=== PATIENT | male | born 1990 | race African-American/Black ===

== ENCOUNTER 2022-05-27 12:12 | Emergency (ER) | payer SELFPAY ==
[2022-05-27] MEDS ORDERED: KEP500T PO (21:24)
== END 2022-05-27 12:46 | disposition left against medical advice (07) ==
LOC: ER 12:12
DX: R56.9 Unspecified convulsions (principal); Z53.21 Procedure and treatment not carried out due to patient leaving prior to being seen by health care provider

== ENCOUNTER 2022-05-27 19:13 | Emergency (ER) | payer MEDICAID ==
[~2022-05-27] VITALS: Ht 185.4 cm; Wt 101.0 kg
[2022-05-27 19:45] VITALS: BP 154/98
--- NOTE | 2022-05-27 20:44 | NUR ---
rpd at bedside
[2022-05-27] MEDS ORDERED: KEP500T PO (21:24)
[2022-05-27] MEDS ORDERED: levetiracetam 250mg tablet PO ONE (21:35)
== END 2022-05-27 21:54 | disposition home or self-care (01) ==
LOC: ER 19:14
DX: R56.9 Unspecified convulsions (principal); F17.200 Nicotine dependence, unspecified, uncomplicated; F15.90 Other stimulant use, unspecified, uncomplicated; Z72.89 Other problems related to lifestyle; Z59.00 Homelessness unspecified; Z86.69 Personal history of other diseases of the nervous system and sense organs; Z79.899 Other long term (current) drug therapy
CPT/HCPCS: 99283

== ENCOUNTER 2022-06-04 22:31 | Inpatient (IN) | payer MEDICAID ==
[~2022-06-04] VITALS: Ht 185.4 cm; Wt 101.0 kg
[~2022-06-04 22:31] MED LIST: KEP500T PO
[2022-06-04] MEDS ORDERED: LORazepam 1 MG tablet PO ONE (22:45)
[2022-06-04] MEDS ORDERED: ziprasidone IM 20mg inj **IM only IM ONE (22:50)
[2022-06-04] MEDS ORDERED: levetiracetam 250mg tablet PO ONE (22:50)
[2022-06-04] MEDS ORDERED: diphenhydrAMINE 25mg capsule PO ONE (22:50)
--- NOTE | 2022-06-04 23:00 | NUR ---
RPD provided name of pt's . Lissy Hernandez [phone]
[2022-06-05 00:19] LABS: BASOPHILS # (AUTO) 0.1 X10'3 (0-0.2); BASOPHILS % (AUTO) 0.6 % (0-1); EOSINOPHILS # (AUTO) 0.2 X10'3 (0-0.9); EOSINOPHILS % (AUTO) 1.6 % (0-6); HEMOGLOBIN 12.5 g/dl (14.0-17.9); LYMPHOCYTES # (AUTO) 1.7 X10'3 (1.1-4.8); LYMPHOCYTES % (AUTO) 13.8 % (21-51); MEAN CORPUSCULAR HEMOGLOBIN 26.7 PG (27.0-31.0); MEAN CORPUSCULAR HGB CONC 33.7 g/dL (33.0-36.5); MEAN CORPUSCULAR VOLUME 79.3 FL (78-98); MONOCYTES % (AUTO) 8.5 % (2-12); NEUTROPHILS # (AUTO) 9.3 X10'3 (1.8-7.7); NEUTROPHILS % (AUTO) 75.5 % (42-75); PLATELET COUNT 273 X10'3 (140-440); RED BLOOD COUNT 4.67 X10'6 (4.70-6.10); RED CELL DISTRIBUTION WIDTH 15.1 % (11.5-14.5); WHITE BLOOD COUNT 12.3 X10'3 (4.5-11.0)
[2022-06-05 00:46] LABS: ALANINE AMINOTRANSFERASE 25 U/L (12-78); ALBUMIN 3.6 G/DL (3.4-5.0); ALBUMIN/GLOBULIN RATIO 1.2 (1.1-1.5); ALKALINE PHOSPHATASE 90 IU/L (46-116); ANION GAP 9 (8-16); ASPARTATE AMINO TRANSFERASE 28 U/L (10-37); BILIRUBIN,TOTAL 0.4 MG/DL (0.1-1.0); BLOOD UREA NITROGEN 12 MG/DL (7-18); BUN/CREATININE RATIO 12.4 (5.4-32.0); CALCIUM 8.5 MG/DL (8.5-10.1); CHLORIDE 104 MMOL/L (99-107); CREATININE 0.97 MG/DL (0.60-1.10); GLUCOSE 94 MG/DL (70-104); POTASSIUM 3.4 MMOL/L (3.5-5.1); SODIUM 140 MMOL/L (135-145); TOTAL CARBON DIOXIDE 27.1 MMOL/L (24-32); TOTAL PROTEIN 6.7 G/DL (6.4-8.2); eGFR > 90 ML/MIN
[2022-06-05 00:53] LABS: ETHANOL < 0.010 GM/DL (0.0-0.010)
[2022-06-05 02:18] LABS: URINE AMPHETAMINE SCREEN POSITIVE (Neg); URINE BARBITUATE SCREEN NEGATIVE (Neg); URINE BENZODIAZEPINES SCREEN NEGATIVE (Neg); URINE CANNABINOID SCREEN POSITIVE (Neg); URINE COCAINE SCREEN NEGATIVE (Neg); URINE METHADONE SCREEN NEGATIVE (Neg); URINE OPIATE SCREEN POSITIVE (Neg); URINE PHENCYCLIDINE SCREEN NEGATIVE (Neg)
[2022-06-05 02:25] LABS: CLARITY,URINE CLEAR (Clear); COLOR,URINE YELLOW (Yellow); GLUCOSE, URINE NEGATIVE (Neg); KETONES,URINE NEGATIVE (Neg); LEUKOCYTE ESTERASE ,URINE NEGATIVE (Neg); NITRITES, URINE NEGATIVE (Neg); OCCULT BLOOD,URINE NEGATIVE (Neg); PROTEIN,URINE NEGATIVE (Neg); UROBILINOGEN,URINE 0.2 E.U/dL (0.2-1.0)
[2022-06-05 02:35] LABS: UA COLLECTION TYPE CLN CATCH MIDSTREAM
[2022-06-05] MEDS ORDERED: normal saline 1000ml 1,000 ML IV ONE (05:40)
--- NOTE | 2022-06-05 07:00 | NUR ---
Report from LAURA Marie. Per Cynthia patient is a hard stick and okay to give fluid oral per
--- NOTE | 2022-06-05 07:24 | NUR ---
Patient sleeping on right side. No distress observed. Continue to monitor.
[2022-06-05] MEDS ORDERED: KEP500T PO (08:35)
--- NOTE | 2022-06-05 09:05 | NUR ---
Patient continues to sleep. No distress observed.
[2022-06-05] MEDS: levetiracetam 250mg tablet PO SCH ×2 (09:23→19:06)
--- NOTE | 2022-06-05 10:55 | NUR ---
Patient awoke and eating 100% of tray and RN had a carb control extra tray and patient at 100% of second tray. Patient is coming off of meth. Patient has drank some water. Patient falls asleep easily, sometimes in the middle of eating. Continue to monitor.
--- NOTE | 2022-06-05 11:55 | NUR ---
RN started I.V. on left upper arm. Second attempt. Patient tolerated well. Continue to monitor.
[2022-06-05] MEDS ORDERED: potassium Cl 20 mEq SR tablet PO STA (13:51)
--- NOTE | 2022-06-05 14:06 | NUR ---
Patient eating his lunch. No distress observed. Continue to monitor.
--- NOTE | 2022-06-05 15:23 | NUR ---
Patient continues to sleep. No distress observed. Continue to monitor.
[2022-06-05 16:48] LABS: BASOPHILS # (AUTO) 0.1 X10'3 (0-0.2); EOSINOPHILS # (AUTO) 0.3 X10'3 (0-0.9); EOSINOPHILS % (AUTO) 3.1 % (0-6); HEMATOCRIT 40.1 % (42.0-52.0); HEMOGLOBIN 13.6 g/dl (14.0-17.9); LYMPHOCYTES # (AUTO) 2.3 X10'3 (1.1-4.8); LYMPHOCYTES % (AUTO) 22.5 % (21-51); MEAN CORPUSCULAR HGB CONC 33.9 g/dL (33.0-36.5); MEAN CORPUSCULAR VOLUME 79.7 FL (78-98); MEAN PLATELET VOLUME 7.6 FL (7.4-10.4); MONOCYTES # (AUTO) 0.8 X10'3 (0-0.9); NEUTROPHILS # (AUTO) 6.7 X10'3 (1.8-7.7); NEUTROPHILS % (AUTO) 65.4 % (42-75); PLATELET COUNT 284 X10'3 (140-440); RED BLOOD COUNT 5.02 X10'6 (4.70-6.10); RED CELL DISTRIBUTION WIDTH 15.6 % (11.5-14.5); WHITE BLOOD COUNT 10.3 X10'3 (4.5-11.0)
[2022-06-05 16:53] LABS: ALANINE AMINOTRANSFERASE 23 U/L (12-78); ALBUMIN/GLOBULIN RATIO 0.9 (1.1-1.5); ALKALINE PHOSPHATASE 90 IU/L (46-116); ANION GAP 6 (8-16); ASPARTATE AMINO TRANSFERASE 24 U/L (10-37); BILIRUBIN,TOTAL 0.3 MG/DL (0.1-1.0); BLOOD UREA NITROGEN 12 MG/DL (7-18); CALCIUM 8.2 MG/DL (8.5-10.1); CHLORIDE 107 MMOL/L (99-107); CREATININE 0.92 MG/DL (0.60-1.10); GLUCOSE 97 MG/DL (70-104); POTASSIUM 4.4 MMOL/L (3.5-5.1); SODIUM 141 MMOL/L (135-145); TOTAL CARBON DIOXIDE 27.6 MMOL/L (24-32); TOTAL PROTEIN 6.2 G/DL (6.4-8.2); eGFR > 90 ML/MIN
--- NOTE | 2022-06-05 17:03 | NUR ---
Felix RECIO, evaluating patient. Continue to monitor.
[2022-06-05] MEDS ORDERED: OLANZapine 2.5MG tablet PO SCH (18:50)
[2022-06-05] MEDS: olanzapine 10mg tablet PO SCH (19:06)
--- NOTE | 2022-06-05 19:29 | NUR ---
Pt sleeping at start of shift. Awakened easily. Speech somewhat tangential. Pt says he hears voices no details on what they say. He does not want to take his prior medications but agreed to try Zyprexa as ordered. Took Zyprexa ate snacks. Pleasant and cooperative. Back to sleep at this time.
[2022-06-05] MEDS ORDERED: mag hydrox/Alum hydrox/simeth 30ml oral suspension PO PRN (21:10)
[2022-06-05] MEDS ORDERED: loperamide 2mg capsule PO PRN (21:10)
[2022-06-05] MEDS ORDERED: magnesium hydroxide 30ml (MOM) UD suspension PO PRN (21:10)
[2022-06-05] MEDS ORDERED: acetaminophen 325mg tablet PO PRN ×2 (21:10)
[2022-06-05 22:34] VITALS: BP 118/63
--- NOTE | 2022-06-05 23:32 | NUR ---
Admit Note: Pt on 5150 for DTS for having recurring SI and hearing voices and seeing shadows. Pt planned to run into traffic. Pt is a resident of [facility] and recently moved to [place] to participate with [facility], new life recovery program. Pt is currently homeless, is a poor historian. Pt is cooperative with admission process, has SI with a plan to jump in front of a car, +AH, the voices tell him "everything" and he fears for his family. Pt mumbles at times and is difficult to understand. Pt has Hx of schizophrenia, THC use and crystal meth.
[2022-06-06 08:00] VITALS: BP 119/63
[2022-06-06] MEDS: olanzapine 10mg tablet PO SCH ×2 (08:23→20:04)
[2022-06-06] MEDS: levetiracetam 250mg tablet PO SCH ×2 (08:23→20:04)
[2022-06-06 09:12] LABS: CHOL/HDL RATIO 1.8 (0.00-4.99); CHOLESTEROL 98 MG/DL (0-200); HDL CHOLESTEROL 56 MG/DL (35-60); LDL CHOLESTEROL 41 MG/DL (50-100); TRIGLYCERIDES 32 MG/DL (20-135)
[2022-06-06 09:19] LABS: HEMOGLOBIN A1C 5.4 % (4.5-6.2)
--- NOTE | 2022-06-06 17:32 | NUR ---
Nursing Progress Note: Problem: Pt on 5150 for DTS for having recurring SI and hearing voices and seeing shadows. Pt planned to run into traffic. Pt is a resident of [facility] and recently moved to [place] to participate with [facility] new life recovery program. Pt is currently homeless, is a poor historian. Pt is cooperative with admission process, has SI with a plan to jump in front of a car, +AH, the voices tell him "everything" and he fears for his family. Pt mumbles at times and is difficult to understand. Pt has Hx of schizophrenia, patient is positive for THC, and opiates. Interventions : Maintained a safe and supportive environment, ensured contract for safety, provide clear and simple instructions, encouraged participation on the unit, and maintained Q 15 min safety checks. Response: Received patient sleeping in bed at change of shift. Patient attends meals and then goes right back to bed and sleeps, sometimes snoring loudly. Patient took morning medications and went back to sleep. Attempted to awaken patient several times throughout the day for 1:1, but patient would not wake up. MILO Castelan attempted to awaken patient, but was unsuccessful. Requested male RN come and wake patient up, as he may respond to a males voice. Patient did wake up, but initially would not answer questions. Patient finally admitted that he is suicidal, and that today he is not having auditory hallucinations. Patient nodded his head confirming that he is hopeless, and started to cry just a little. Patient requested snack and sandwich was provided in the group room. Patient is guarded, appears depressed and isolates. Plan : Pt. continues to require medication adjustments and a safe and supportive environment.
[2022-06-06 19:48] VITALS: BP 119/56
--- NOTE | 2022-06-06 23:59 | NUR ---
Nursing Progress Note: Gaetano Problem: Pt on 5150 for DTS for having recurring SI and hearing voices and seeing shadows. Pt planned to run into traffic. Pt is a resident of [facility] and recently moved to [place] to participate with [facility], new life recovery program. Pt is currently homeless, is a poor historian. Pt is cooperative with admission process, has SI with a plan to jump in front of a car, +AH, the voices tell him "everything" and he fears for his family. Pt mumbles at times and is difficult to understand. Pt has Hx of schizophrenia, patient is positive for THC, and opiates. Interventions : Maintained a safe and supportive environment, ensured contract for safety, provide clear and simple instructions, encouraged participation on the unit, and maintained Q 15 min safety checks. Response: Received patient sleeping at change of shift. Woke pt up for HS medications. Pt has +AH and states they are top secret. He states they are SOS shit trying to communicate through my brain. Pt up for HS snacks and went back to bed. Patient is guarded, appears depressed and isolates. Plan : Pt. continues to require medication adjustments and a safe and supportive environment.
[2022-06-07 08:00] VITALS: BP 115/72
[2022-06-07] MEDS: levetiracetam 250mg tablet PO SCH ×2 (08:36→19:45)
[2022-06-07] MEDS: olanzapine 10mg tablet PO SCH ×2 (08:37→19:45)
--- NOTE | 2022-06-07 11:49 | NUR ---
Discharge planning, initial info from client --client states he would like to discharge to [facility] --client's [facility] is [facility] --would like transportation to [facility]/does not have transportation --states if he returns to spouse Lissy Hernandez (Gina), , he has housing. --PCP: Fahad Shay, [address] [place] [address] --[facility] mental health contact: [phone] Addendum: 06/07/22 at 1448 by Annelise SEVILLA Client provided verbal permission to contact emergency contact (Awilda, spouse) and [facility].
--- NOTE | 2022-06-07 15:00 | NUR ---
Met with patient in regards to substance use and to see if patient wanted resources for treatment options. Patient stated that he was just in the [facility] program and that he was asked to leave the program. Patient said he would like to go back home first and work on his mental health before deciding on a drug treatment facility again. I gave patient [facility] number and his insurance id number in case he changes his mind and wants to go to an inpatient rehab.
--- NOTE | 2022-06-07 16:53 | NUR ---
Nursing Progress Note: Gaetano Problem: Pt on 5150 for DTS for having recurring SI and hearing voices and seeing shadows. Pt planned to run into traffic. Pt is a resident of [facility] and recently moved to [place] to participate with [facility], new life recovery program. Pt is currently homeless, is a poor historian. Interventions: Medication administration. Maintained a safe and supportive environment, provided clear and simple instructions, provided direction and encouragement regarding performance of ADLs, monitored behaviors and maintained clear boundaries, provided positive reinforcement, and maintained Q15 minute safety checks Response: Received patient sleeping he woke to receive his medications. Pt is receptive and takes his meds without hesitation. Pt. presents as delusional stating I hear SOS coming through pointing to his head. Pt denies HI, A/VH and states his DC plan get back to placement Pt. did attend all meals, but goes back to his immediately. Pt. doesnt interact with cohorts and isolates in his room throughout the shift. Pt. presents with fair hygiene, poor grooming, and wearing unit scrubs. Pt. prefers not to engage with business writer and rolled over often during assessment. Plan: Pt. continues to require medication adjustments and a safe and supportive environment.
[2022-06-07 19:33] VITALS: BP 120/80
--- NOTE | 2022-06-08 00:52 | NUR ---
Nursing Progress Note: Problem: Pt on 5150 for DTS for having recurring SI and hearing voices and seeing shadows. Pt planned to run into traffic. Pt is a resident of [facility] and recently moved to [place] to participate with [facility], [facility] recovery program. Pt is currently homeless, is a poor historian. Interventions; One to one with the patient to assess for self harm risk, severity of depressive symptoms and for residual psychotic symptoms. Physical assessment completed. Assessed for medication side effects. Response: The patient spent the entire evening sleeping on his bed except to get up for snack. He was medication compliant. When approached for the evening assessment he presented as very tired. He denied that he was hearing voices. He denied that he was having thoughts to harm himself. He was medication compliant and he denied medication side effects. When asked how his mood was he stated "quiet, peaceful and sleepy" He denies that he is craving substances. When asked what his discharge plan was he stated that he was going to return home to his and try and find a treatment program that would help him. Plan: Continue q 15 minute safety checks. Assess mood and for residual psychotic symptoms q shift and prn.
[2022-06-08] MEDS: olanzapine 10mg tablet PO SCH ×2 (07:21→20:01)
[2022-06-08] MEDS: levetiracetam 250mg tablet PO SCH ×2 (07:21→20:01)
[2022-06-08 08:00] VITALS: BP 83/62
--- NOTE | 2022-06-08 08:26 | NUR ---
DISCHARGE PLANNING, no current dc location Client indicated desire to return to [facility]) to his and emergency contact, Awilda. Client gave permission to contact his spouse. Awilda, client's ex, indicated her home is not a discharge location. Reasons given by Awilda Hernandez (Georgina): They have been for some time, she has a restraining order against client.
--- NOTE | 2022-06-08 16:32 | NUR ---
Nursing Progress Note: Gaetano Problem: Pt on 5150 for DTS for having recurring SI and hearing voices and seeing shadows. Pt planned to run into traffic. Pt is a resident of [facility] and recently moved to [place] to participate with [facility], new life recovery program. Pt is currently homeless, is a poor historian. Interventions: Medication administration. Maintained a safe and supportive environment, provided clear and simple instructions, provided direction and encouragement regarding performance of ADLs, monitored behaviors and maintained clear boundaries, provided positive reinforcement, and maintained Q15 minute safety checks Response: Received patient sleeping he woke to make a phone call and took his medications without hesitation. Pt. ate breakfast with cohorts and returned to his room. He denies SI, HI, A/VH and states his DC plan is go back to [place] and see my counselor about finding me a place Pt. presented with rapid speech but did not endorses any delusions. He has poor hygiene, slightly disheveled, and wearing unit scrubs. He was offered a shower, but refused needing one. Pt. rolled over and went back to sleep. Pt. spent most of the shift sleeping and isolated in his room. Plan: Pt. continues to require medication adjustments and a safe and supportive environment.
[2022-06-08 20:23] VITALS: BP 107/63
--- NOTE | 2022-06-09 00:33 | NUR ---
Nursing Progress Note: Gaetano Problem: Pt on 5150 for DTS for having recurring SI and hearing voices and seeing shadows. Pt planned to run into traffic. Pt is a resident of [facility] and recently moved to [place] to participate with [facility], new life recovery program. Pt is currently homeless, is a poor historian. Interventions: Medication administration. Maintained a safe and supportive environment, provided clear and simple instructions, provided direction and encouragement regarding performance of ADLs, monitored behaviors and maintained clear boundaries, provided positive reinforcement, and maintained Q15 minute safety checks Response: Received patient awake resting in his bed. He feels that the meds are working. He endorses hearing voices and states that its only temporary but we are getting there as he is pointing upwards towards the kellen. Pt denies SI. He has mild depression/anxiety and states the reason why I say yikes is because when Im around people I get nervous. Pt up for snacks and took all HS medications without issue. Pt to bed shortly after med pass. Plan: Pt. continues to require medication adjustments and a safe and supportive environment.
[2022-06-09] MEDS: levetiracetam 250mg tablet PO SCH ×2 (07:42→20:22)
[2022-06-09] MEDS: olanzapine 10mg tablet PO SCH ×2 (07:42→20:22)
[2022-06-09 08:00] VITALS: BP 113/65
--- NOTE | 2022-06-09 12:42 | NUR ---
5250 upheld for GD
--- NOTE | 2022-06-09 13:47 | NUR ---
Initial: Pt admitted w/ schizophrenia per EMR. Currently on Regular diet w/ mostly 100% intake of meals meeting est needs. LBM 06/07. No nutrition intervention implemented at this time, will continue to monitor. Recs; 1. Continue Regular diet as tolerated 2. Bowel care PRN 3. Weekly wts Addendum: 06/09/22 at [address] Amended: Links added.
--- NOTE | 2022-06-09 16:48 | NUR ---
Nursing Progress Note: Gaetano Problem: Pt on 5150 for DTS for having recurring SI and hearing voices and seeing shadows. Pt planned to run into traffic. Pt is a resident of [facility] and recently moved to [place] to participate with [facility], new life recovery program. Pt is currently homeless, is a poor historian. Interventions: Medication administration. Maintained a safe and supportive environment, provided clear and simple instructions, provided direction and encouragement regarding performance of ADLs, monitored behaviors and maintained clear boundaries, provided positive reinforcement, and maintained Q15 minute safety checks Response: Received patient sleeping he woke to eat breakfast and took his medications without hesitation. Pt. returned to his room and slept most of the morning. He denies SI, HI, A/VH and states his DC plan is hopefully I can get to [place] Pt. has fair hygiene, slightly disheveled, and wearing unit scrubs. He was offered a shower. Pt. OOB and attended lunch he was observed socializing with cohort and laughing. Pt. is pleasant and no delusions reported. Plan: Pt. continues to require medication adjustments and a safe and supportive environment.
[2022-06-09 19:00] VITALS: BP 137/58
--- NOTE | 2022-06-09 19:34 | NUR ---
Nursing Progress Note: Problem: Pt on 5150 for DTS for having recurring SI and hearing voices and seeing shadows. Pt planned to run into traffic. Pt is a resident of [facility] and recently moved to [place] to participate with [facility], new life recovery program. Pt is currently homeless, is a poor historian. Interventions: Medication administration. Maintained a safe and supportive environment, provided clear and simple instructions, provided direction and encouragement regarding performance of ADLs, monitored behaviors and maintained clear boundaries, provided positive reinforcement, and maintained Q15 minute safety checks Response: 1:1 Interview at bedside. Patient is isolating in his room at interview time but gradually gets up and goes to the community room. He denies S/I, H/I, or any hallucinations tonight, he has had both in the recent past. When patint was asked how he felt he states "I'm feeling good." When asked about his thoughts the patient replies "I'm not thinking about anything, I'm just relaxing." He does admit to being bored. Patient had a BM today. Plan: Pt. continues to require medication adjustments and a safe and supportive environment.
[2022-06-10 08:00] VITALS: BP 129/79
[2022-06-10] MEDS: levetiracetam 250mg tablet PO SCH ×2 (08:42→20:42)
[2022-06-10] MEDS: olanzapine 10mg tablet PO SCH ×2 (08:42→20:42)
--- NOTE | 2022-06-10 12:43 | NUR ---
Nursing Progress Note: Problem : Pt on 5150 for DTS for having recurring SI and hearing voices and seeing shadows. Pt planned to run into traffic. Pt is a resident of [facility] and recently moved to [place] to participate with [facility], new life recovery program. Pt is currently homeless, is a poor historian. Interventions : Introduced self and established rapport, maintained a safe and supportive environment, ensured contract for safety, provided clear and simple instructions, encouraged participation on the unit, and maintained Q 15min safety checks. Response : Received pt. sleeping in bed at the beginning of the shift, he was awoken to attend breakfast in the Group Room and afterwards retreated back to bed. 1:1 was completed at bedside, pt. presents as cooperative, fatigued, guarded, and withdrawn. He responds minimally to direct questions and has fair eye contact (looking down or away at intervals). Pt. denies any S/I, however reports ongoing depression and some anxiety. When further questioned by this gag writer regarding the cause for this, pt. does not elaborate and states, "It's just my situation." Pt. admits to ongoing A/ROLON of, "Nothing very specific," and V/ROLON of "Shadows." When questioned regarding any thoughts that others may want to hurt him, pt. raised his finger to his mouth (gesturing to be quiet) and did not respond. Pt. isolated in bed throughout the morning, he was encouraged to attend Group, however refused. Will continue to encourage participation on the unit. Plan : Per ALONSO Kinney pt. requires medication adjustments and a safe and supportive environment.
[2022-06-10] MEDS ORDERED: nicotine prolacrilex 4mg gum BC PRN (15:10)
[2022-06-10 19:00] VITALS: BP 128/76
[2022-06-10] MEDS: PALIPERIDONE 3 MG TAB.ER.24 PO SCH (20:42)
--- NOTE | 2022-06-11 05:56 | NUR ---
Nursing Progress Note: Problem : Pt on 5150 for DTS for having recurring SI and hearing voices and seeing shadows. Pt planned to run into traffic. Pt is a resident of [facility] and recently moved to [place] to participate with [facility], new life recovery program. Pt is currently homeless, is a poor historian. Interventions : Introduced self and established rapport, maintained a safe and supportive environment, ensured contract for safety, provided clear and simple instructions, encouraged participation on the unit, and maintained Q 15min safety checks. Response : Patient is pleasant and cooperative with care; compliant with medication. He was started on PO Invega this shift with no ASE observed. He denies SI, HI, VH; endorses AH. Patient explained that the headphones helped distract him from AH. Patient participated in HS snack prior to bed; observed sleeping with some interruption d/t his roommate waking him up. Plan : Per ALONSO Kinney pt. requires medication adjustments and a safe and supportive environment.
[2022-06-11 08:00] VITALS: BP 116/74
[2022-06-11] MEDS: levetiracetam 250mg tablet PO SCH ×2 (08:28→20:41)
[2022-06-11] MEDS: olanzapine 10mg tablet PO SCH ×2 (08:28→20:41)
--- NOTE | 2022-06-11 15:37 | NUR ---
Nursing Progress Note Problem: Pt on 5150 for DTS for having recurring SI and hearing voices and seeing shadows. Pt planned to run into traffic. Pt is a resident of [facility] and recently moved to [place] to participate with [facility], new life recovery program. Pt is currently homeless, is a poor historian. Interventions: Medication administration. Maintained a safe and supportive environment, provided clear and simple instructions, provided direction and encouragement regarding performance of ADLs, monitored behaviors and maintained clear boundaries, provided positive reinforcement, and maintained Q15 minute safety checks Response: Received Pt in bed sleeping w/o distress. Pt woke and was cooperative with vitals. Pt to community room for breakfast and all meals and ate well. Pt took AM meds w/o issue and was cooperative with AM assessments. Pt napped in morning and stayed in bed during group. He denies SI, HI, A/VH. Pt social with others during meals with full range of affect. Pt returned to room and napped in afternoon as well. Overall pleasant and polite, guarded and isolates to room for long periods. Plan: Pt. continues to require medication adjustments and a safe and supportive environment.
[2022-06-11 20:00] VITALS: BP 128/77
[2022-06-11] MEDS: PALIPERIDONE 3 MG TAB.ER.24 PO SCH (20:40)
--- NOTE | 2022-06-12 00:16 | NUR ---
Nursing Progress Note Problem: Pt on 5150 for DTS for having recurring SI and hearing voices and seeing shadows. Pt planned to run into traffic. Pt is a resident of [facility] and recently moved to [place] to participate with [facility], new life recovery program. Pt is currently homeless, is a poor historian. Interventions: Medication administration. Maintained a safe and supportive environment, provided clear and simple instructions, provided direction and encouragement regarding performance of ADLs, monitored behaviors and maintained clear boundaries, provided positive reinforcement, and maintained Q15 minute safety checks Response: Received Pt in community room after dinner, talking with other Pts and he returned to his room. Pt is polite and pleasant, but guarded and continues to isolate, spending most of his time in bed. Pt was cooperative with a room change to accommodate another Pt's needs. Pt denies all sxs and participated in snack. He took PM meds w/o issue and is sleeping w/o distress at this time. Plan: Pt. continues to require medication adjustments and a safe and supportive environment.
[2022-06-12 07:00] VITALS: BP 122/69
[2022-06-12] MEDS: olanzapine 10mg tablet PO SCH ×2 (08:16→20:43)
[2022-06-12] MEDS: levetiracetam 250mg tablet PO SCH ×2 (08:16→20:42)
--- NOTE | 2022-06-12 17:26 | NUR ---
Nursing Progress Note Problem: Pt on 5150 for DTS for having recurring SI and hearing voices and seeing shadows. Pt planned to run into traffic. Pt is a resident of [facility] and recently moved to [place] to participate with [facility], new life recovery program. Pt is currently homeless, is a poor historian. Interventions: Medication administration. Maintained a safe and supportive environment, provided clear and simple instructions, provided direction and encouragement regarding performance of ADLs, monitored behaviors and maintained clear boundaries, provided positive reinforcement, and maintained Q15 minute safety checks Response: Received patient sleeping in bed at change of shift. Patient awakens for breakfast and takes his morning medications, then goes back to sleep. During 1:1 in patients room, patient reports that he is going to go back to [place] and has a counselor all set up and will be going into a drug rehabilitation program. Patient states that he talked on the phone with his daughter and his mood is bright. Patient denies SI, HI, A/V/H. Patient tends to isolate to his room. Plan: Pt. continues to require medication adjustments and a safe and supportive environment.
[2022-06-12 20:00] VITALS: BP 117/87
[2022-06-12] MEDS: PALIPERIDONE 3 MG TAB.ER.24 PO SCH (20:43)
--- NOTE | 2022-06-13 03:13 | NUR ---
Nursing Progress Note: Problem : Pt. was admitted to [facility] as a transfer from [facility] on a 5150 for DTS. Per 5150: Pt. presents as depressed and reported feeling unsafe to leave the hospital. Pt. states, "I feel like I'm just going to walk into traffic." Interventions : Maintained a safe and supportive environment, ensured contract for safety, provided clear and simple instructions, encouraged participation on the unit, provided active listening and positive encouragement, and maintained Q 15min safety checks. Response: Patient in his room at change of shift. Patient was busy chatting with new roommate. Patient attended snack in the dining room and then went back to his room, and finished his conversation. Patient admits to A/H tonight and has questions about Invega, and Invega Sustenna, which were answered. Patient due to have first dose of Invega Sustenna in the morning. Took all h.s. medications and then went to sleep. Plan : Per Dr. Charles, pt. continues to require medication adjustments and is at high risk for discharge r/t homelessness.
[2022-06-13 08:00] VITALS: BP 135/66
[2022-06-13] MEDS ORDERED: OLANZAPINE 5 MG TABLET PO SCH (08:00)
[2022-06-13] MEDS: levetiracetam 250mg tablet PO SCH ×2 (08:04→20:20)
[2022-06-13] MEDS ORDERED: NICOTINE POLACRILEX 4 MG LOZENGE BC PRN (09:15)
[2022-06-13] MEDS ORDERED: paliperidone palmitate inj 234 MG/1.5 ML SYRINGE IM ONE (10:00)
[2022-06-13] MEDS: NICOTINE POLACRILEX 2 MG LOZENGE BC PRN ×2 (10:28→18:53)
--- NOTE | 2022-06-13 11:58 | NUR ---
DISCHARGE PLANNING, pending contact [facility]. Left message for Celestina, client's manager case management per client. . Requested a call back, or call back to Jocelynn WINTERS
--- NOTE | 2022-06-13 16:55 | NUR ---
Nursing Progress Note Problem: Pt on 5150 for DTS for having recurring SI and hearing voices and seeing shadows. Pt planned to run into traffic. Pt is a resident of [facility] and recently moved to [place] to participate with [facility], new life recovery program. Pt is currently homeless, is a poor historian. Interventions: Provided 1:1 therapeutic communication with active listening. Provided medication administration/education/monitoring. Invega Sustenna 234mg IM administered left deltoid. Provided encouragement regarding performance of ADLs. Monitored behaviors. Monitored Q15 minute safety checks Response: Pt up engaging with roommate at the start of the shift. Pt reports, "I can't wait to tell my girls, Happy Halloween on the phone this morning." Pt spoke to both his girls in the am and then again in the afternoon. He denies SI, HI, A/V/H. Patient tends to isolate to his room. Plan: Pt. continues to require medication adjustments and a safe and supportive environment.
[2022-06-13] MEDS: olanzapine 10mg tablet PO SCH (20:20)
[2022-06-13] MEDS: PALIPERIDONE 3 MG TAB.ER.24 PO SCH (20:20)
[2022-06-13 20:56] VITALS: BP 148/83
--- NOTE | 2022-06-14 00:59 | NUR ---
Nursing Progress Note: Gaetano Problem: Pt on 5150 for DTS for having recurring SI and hearing voices and seeing shadows. Pt planned to run into traffic. Pt is a resident of [facility] and recently moved to [place] to participate with [facility], new life recovery program. Pt is currently homeless, is a poor historian. Interventions: Provided 1:1 therapeutic communication with active listening. Provided medication administration/education/monitoring. Invega Sustenna 234mg IM administered left deltoid. Provided encouragement regarding performance of ADLs. Monitored behaviors. Monitored Q15 minute safety checks Response: Pt in the community room playing games with peers, smiling. Pt states he feels the best hes ever felt. Denies MH symptoms, no voices. Pt remains in the community room for snacks and took all HS medications and went to bed shortly after med pass. No complaints or needs at this time. Plan: Pt. continues to require medication adjustments and a safe and supportive environment.
[2022-06-14] MEDS: levetiracetam 250mg tablet PO SCH ×2 (07:38→21:19)
[2022-06-14 07:58] VITALS: BP 138/97
[2022-06-14] MEDS: NICOTINE POLACRILEX 2 MG LOZENGE BC PRN ×3 (12:10→19:34)
--- NOTE | 2022-06-14 13:25 | NUR ---
DISCHARGE PLANNING, CLIENT NEEDS TO RESTART WITH [facility] Note: client makes this [facility] staff member uncomfortable (her words), and client needs to use the main number to re-establish services with [facility] . Conversation with Celestina Juarez, contact name given by client. Per Celestina, she is client's ex-therapist. Per Celestina, client's services and treatment plan in December 2021. Client needs to make an appointment using the [facility]'s main number to redo assessment, new treatment plan. September 2021 was last time client interacted with a prescriber via [facility]. She believes he is no longer welcome at [facility] in [facility], where client stated he would be going. This policy writer typist will contact [place]
--- NOTE | 2022-06-14 16:26 | NUR ---
DISCHARGE PLANNING Client indicated he would discharge to [facility]. Completed an [facility] with client. Client removed [facility] from [facility], indicating they have a no trespassing order on him, and he can no longer receive their services. Client put mom (mother in law), Shandra Hernandez as his discharge address and contact. This fiction writer will discuss with SS team.
--- NOTE | 2022-06-14 16:40 | NUR ---
Nursing Progress Note Problem: Pt on 5150 for DTS for having recurring SI and hearing voices and seeing shadows. Pt planned to run into traffic. Pt is a resident of [facility] and recently moved to [place] to participate with [facility], new life recovery program. Pt is currently homeless, is a poor historian. Interventions: Medication administration. Maintained a safe and supportive environment, provided clear and simple instructions, provided direction and encouragement regarding performance of ADLs, monitored behaviors and maintained clear boundaries, provided positive reinforcement, and maintained Q15 minute safety checks Response: Received Pt in bed sleeping w/o distress. Pt woke and was cooperative with vitals. Pt to community room for breakfast and all meals and ate well. Pt took AM meds w/o issue and was cooperative with AM assessments. Pt more talkative today and smiling with bright affect. Pt attended portion of AM group and was social with others in halls and community room. Pt denies SI and MH symptoms. He used Nicotine lozenges but did not need any other PRN medications. Plan: Pt. continues to require medication adjustments and a safe and supportive environment.
[2022-06-14 19:39] VITALS: BP 144/73
[2022-06-14] MEDS: PALIPERIDONE 3 MG TAB.ER.24 PO SCH (21:17)
[2022-06-14] MEDS: olanzapine 10mg tablet PO SCH (21:17)
--- NOTE | 2022-06-15 05:00 | NUR ---
Nursing Progress Note Problem: Pt on 5150 for DTS for having recurring SI and hearing voices and seeing shadows. Pt planned to run into traffic. Pt is a resident of [facility] and recently moved to [place] to participate with [facility], new life recovery program. Pt is currently homeless, is a poor historian. Interventions: Medication administration. Maintained a safe and supportive environment, provided clear and simple instructions, provided direction and encouragement regarding performance of ADLs, monitored behaviors and maintained clear boundaries, provided positive reinforcement, and maintained Q15 minute safety checks Response: Patient is pleasant and cooperative with care; compliant with medication. He denies SI, HI, A/VH; no apparent delusions expressed. He is social with peers and participated in HS snack prior to bed; observed sleeping and does not appear to be having difficulty. Plan: Pt. continues to require medication adjustments and a safe and supportive environment.
[2022-06-15 07:44] VITALS: BP 122/79
[2022-06-15] MEDS: levetiracetam 250mg tablet PO SCH ×2 (07:57→19:59)
[2022-06-15] MEDS: NICOTINE POLACRILEX 2 MG LOZENGE BC PRN ×4 (12:41→19:59)
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
--- NOTE | 2022-06-15 16:40 | NUR ---
DISCHARGE PLAN-06/16/22 Gaetano will be discharging to a friend's house in [place]. He has follow up scheduled on Mon06/17/22 at [facility]. They will pick him up on at noon. VIANEY Wilson
[2022-06-15 19:00] VITALS: BP 140/82
[2022-06-15] MEDS: PALIPERIDONE 3 MG TAB.ER.24 PO SCH (19:59)
[2022-06-15] MEDS: olanzapine 10mg tablet PO SCH (19:59)
--- NOTE | 2022-06-16 04:55 | NUR ---
Nursing Progress Note Problem: Pt on 5150 for DTS for having recurring SI and hearing voices and seeing shadows. Pt planned to run into traffic. Pt is a resident of [facility] and recently moved to [place] to participate with [facility], new life recovery program. Pt is currently homeless, is a poor historian. Interventions: Medication administration. Maintained a safe and supportive environment, provided clear and simple instructions, provided direction and encouragement regarding performance of ADLs, monitored behaviors and maintained clear boundaries, provided positive reinforcement, and maintained Q15 minute safety checks Response: Patient is pleasant and cooperative with care; compliant with medication. PRN Nicotine lozenge provided. He denies SI, HI, A/VH; no apparent delusions expressed. Patient is social and joking with staff and peers. He expressed looking forward to discharge; plan is for friend to pick him up at noon and will be staying at his friend's house in [place]. Patient participated in HS snack prior to bed; observed sleeping and does not appear to be having difficulty. Plan: Discharge scheduled for noon on 06/16; friend will be picking him up.
[2022-06-16] MEDS: NICOTINE POLACRILEX 2 MG LOZENGE BC PRN ×2 (07:11→11:08)
--- NOTE | 2022-06-16 07:22 | NUR ---
Reassessment: Pt currently on Regular diet w/ mostly 100% intake of meals meeting est needs. LBM 06/15. No nutrition intervention implemented at this time, will continue to monitor. Recs; 1. Continue Regular diet as tolerated 2. Bowel care PRN 3. Weekly wts Addendum: 06/16/22 at [address] Amended: Links added.
[2022-06-16] MEDS: levetiracetam 250mg tablet PO SCH (08:11)
[2022-06-16 08:29] VITALS: BP 123/91
[2022-06-16] MEDS ORDERED: paliperidone palmitate 156 mg/ml inj.**IM only IM ONE (08:30)
[2022-06-16] MEDS ORDERED: NICO-907 BC (11:16)
[2022-06-16] MEDS ORDERED: KEP500T PO (11:16)
[2022-06-16] MEDS ORDERED: PALI156D IM (11:19)
--- NOTE | 2022-06-16 12:00 | NUR ---
Discharge Note: Pt. was discharged off the unit accompanied by Tech and security to the car of his friend who is picking him up. Pt's belongings were inventoried and returned to him by Tech. Nurse reviewed pt's medications with him and discharge instructions and he reported understanding. Pt. is able to contract for safety. He has follow up scheduled on Mon06/17/22 at [facility]. Invega Sustenna 156mg injection was administered in pt's right deltoid prior to discharge, and he tolerated this well.
== END 2022-06-16 12:05 | disposition home or self-care (01) | DRG 750 ==
LOC: ER 22:32 → ED HOLD 06-05 19:15 → ADULT MH 06-05 19:57
PROVIDERS: ADMIT Psychiatry & Neurology Psychiatry; ATTEND Psychiatry & Neurology Psychiatry
DX: F20.9 Schizophrenia, unspecified (principal); R45.851 Suicidal ideations; G40.909 Epilepsy, unspecified, not intractable, without status epilepticus; F12.90 Cannabis use, unspecified, uncomplicated; Z20.822 Contact with and (suspected) exposure to COVID-19; F15.90 Other stimulant use, unspecified, uncomplicated; F17.210 Nicotine dependence, cigarettes, uncomplicated; Z59.00 Homelessness unspecified; Z65.3 Problems related to other legal circumstances; Z71.6 Tobacco abuse counseling
CPT/HCPCS: 36415; 71045; 80053; 80061; 80177; 80305; 80320; 81003; 83036; 83605; 85025; 87040; 87081; 87811; 99285; C2617; J2426; J3486; J7030; Q0163